=== PATIENT | female | born 1935 | race Caucasian/White ===

== ENCOUNTER 2016-09-03 15:30 | Inpatient (IN) | payer OTHER ==
[~2016-09-03] VITALS: Ht 162.6 cm; Wt 80.7 kg
[2016-09-03] MEDS ORDERED: SODIUM CHLORIDE 0.9% 1,000 ML IV ONE (16:05)
[2016-09-03 16:07] LABS: Basophils # (auto) 0 uL; CONDITION Y; Eosinophils # (auto) 0 uL; Hematocrit 40.8 % (36.0-46.0); Hemoglobin 13.4 g/dL (12.2-16.2); Lymphocytes # (auto) 1.1 uL; Lymphocytes % (auto) 7.5 % (10.0-50.0); Mean Corpuscular Hemoglobin 29.4 pg (28.0-32.0); Mean Corpuscular Hgb Conc. 32.8 g/dL (32.0-36.0); Mean Corpuscular Volume 89.5 fL (80.0-100.0); Mean Platelet Volume 8.6 fL (7.4-10.4); Monocytes % (auto) 6.8 % (0.0-12.0); Neutrophils # (auto) 12.6 uL; Neutrophils % (auto) 85.7 % (37.0-80.0); Platelet Count (auto) 326 10^3/uL (140-450); Red Cell Distribution Width 15.1 % (11.6-16.0); White Blood Cell 14.7 10^3/uL (4.4-10.8)
[2016-09-03 16:29] LABS: Albumin 3.5 g/dL (3.4-5.0); Bilirubin, Total 0.8 mg/dL (0.2-1.0); Calcium 9.3 mg/dL (8.5-10.1); Magnesium 2.1 mg/dL (1.6-2.6); Potassium 3.8 mmol/L (3.5-5.1); Total Protein 7.1 g/dL (6.4-8.2)
[2016-09-03] MEDS ORDERED: MECLIZINE HCL 25 MG TAB PO ONE (17:45)
[2016-09-03] MEDS ORDERED: LACTULOSE 20Gm/30ML SOLN PO PRN (18:00)
[2016-09-03] MEDS ORDERED: NITROGLYCERIN 0.4 MG SL TAB SL PRN (18:00)
[2016-09-03] MEDS ORDERED: HYDROcodone-ACET 5/325MG TAB PO PRN (18:00)
[2016-09-03] MEDS ORDERED: ACETAMINOPHEN 500 MG TAB PO PRN (18:00)
[2016-09-03] MEDS ORDERED: TEMAZEPAM 15 MG CAP PO PRN (18:00)
[2016-09-03] MEDS ORDERED: MORPHINE SULF INJ 2 MG/ML SYRINGE 1ML IV PRN ×2 (18:00)
[2016-09-03] MEDS ORDERED: LORazepam 0.5 MG TAB PO PRN (18:00)
[2016-09-03] MEDS ORDERED: PANTOPRAZOLE SODIUM 40 MG/10 ML VIAL IV ONE (18:00)
[2016-09-03] MEDS: PROMETHAZINE HCL 25 MG/ML 1ML IV PRN ×2 (18:09→18:47)
[2016-09-03] MEDS: SODIUM CHLORIDE 0.9% 1,000 ML IV SCH (18:20)
[2016-09-03] MEDS ORDERED: cefTRIAXone 1GM/50ML D5W 50 ML IV ONE (18:30)
[2016-09-03 19:09] LABS: Urine Bilirubin Negative (Negative); Urine Blood TRACE /uL (Negative); Urine Color Yellow (Yellow); Urine Glucose Normal (Normal); Urine Hyaline Cast FEW /lpf (0 - 2); Urine Mucus FEW (None Seen); Urine Nitrite Negative (Negative); Urine RBC 2 /hpf (0 - 4); Urine Squamous Epithelial Cell FEW /hpf (<5); Urine Urobilinogen Normal (Negative); Urine pH 5.5 (5.0-8.0)
[2016-09-03 19:12] LABS: Urine Ketone 1+ (Negative)
[2016-09-03 19:34] LABS: Temperature: 23.3 C (20.0-25.0)
[2016-09-03 19:51] LABS: Temperature: 23.3 C (20.0-25.0)
[2016-09-03] MEDS ORDERED: MORPHINE SULFATE 4 MG/ML SYRG IV PRN ×2 (21:31→21:32)
[2016-09-03] MEDS ORDERED: ATORVASTATIN 20 MG TAB PO SCH (22:00)
[2016-09-03] MEDS: METOPROLOL TARTRATE 25 MG TAB PO SCH (22:17)
[2016-09-03 22:50] VITALS: BP 139/53
[2016-09-04] MEDS: SODIUM CHLORIDE 0.9% 1,000 ML IV SCH ×3 (01:55→21:34)
[2016-09-04 05:00] VITALS: BP 132/68
[2016-09-04 05:57] LABS: Basophils # (auto) 0 uL; Basophils % (auto) 0.2 % (0.0-2.0); CONDITION Y; Eosinophils # (auto) 0.1 uL; Eosinophils % (auto) 0.4 % (0.0-7.0); Hematocrit 35.9 % (36.0-46.0); Hemoglobin 11.6 g/dL (12.2-16.2); Lymphocytes # (auto) 1.6 uL; Lymphocytes % (auto) 12.7 % (10.0-50.0); Mean Corpuscular Hemoglobin 29.2 pg (28.0-32.0); Mean Corpuscular Hgb Conc. 32.2 g/dL (32.0-36.0); Mean Corpuscular Volume 90.7 fL (80.0-100.0); Mean Platelet Volume 8.7 fL (7.4-10.4); Monocytes # (auto) 1.1 uL; Monocytes % (auto) 8.9 % (0.0-12.0); Neutrophils # (auto) 9.6 uL; Neutrophils % (auto) 77.8 % (37.0-80.0); Platelet Count (auto) 322 10^3/uL (140-450); Red Cell Distribution Width 15.2 % (11.6-16.0); White Blood Cell 12.4 10^3/uL (4.4-10.8)
[2016-09-04 06:19] LABS: Albumin 2.8 g/dL (3.4-5.0); BUN/Creatinine Ratio 51.8; Bilirubin, Total 0.5 mg/dL (0.2-1.0); Calcium 8.3 mg/dL (8.5-10.1); Potassium 3.7 mmol/L (3.5-5.1); Total Protein 5.7 g/dL (6.4-8.2)
[2016-09-04 07:58] LABS: Hematocrit 36.3 % (36.0-46.0); Hemoglobin 11.9 g/dL (12.2-16.2)
[2016-09-04] MEDS ORDERED: ASPirin 81 mg TAB PO SCH (10:00)
[2016-09-04] MEDS ORDERED: ENOXAPARIN SOD 40 MG/0.4 ML SYRINGE SC SCH (10:00)
[2016-09-04] MEDS: cefTRIAXone 1GM/50ML D5W 50 ML IV SCH (10:26)
[2016-09-04] MEDS: METOPROLOL TARTRATE 25 MG TAB PO SCH ×2 (10:27→21:35)
[2016-09-04] MEDS: PANTOPRAZOLE SODIUM 40 MG/10 ML VIAL IV SCH (10:27)
[2016-09-04] MEDS ORDERED: IOHEXOL 350 MG/ML 100ML IJ ONE (10:50)
[2016-09-04 11:49] LABS: Hemoglobin 11.8 g/dL (12.2-16.2)
[2016-09-04 11:50] VITALS: BP 125/55
[2016-09-04 16:10] LABS: Hematocrit 35.3 % (36.0-46.0); Hemoglobin 11.6 g/dL (12.2-16.2)
[2016-09-04 16:39] VITALS: BP 124/52
[2016-09-04 20:51] VITALS: BP 130/55
[2016-09-04] MEDS: ATORVASTATIN 20 MG TAB PO SCH (21:34)
[2016-09-04 22:51] LABS: Hematocrit 35.2 % (36.0-46.0); Hemoglobin 11.5 g/dL (12.2-16.2)
[2016-09-05] MEDS: SODIUM CHLORIDE 0.9% 1,000 ML IV SCH ×3 (01:55→18:23)
[2016-09-05 05:44] VITALS: BP 148/70
[2016-09-05 07:31] VITALS: BP 155/67
[2016-09-05] MEDS: BOOST 8 ounces PO SCH ×2 (10:14→18:24)
[2016-09-05] MEDS: cefTRIAXone 1GM/50ML D5W 50 ML IV SCH (10:14)
[2016-09-05] MEDS: PANTOPRAZOLE SODIUM 40 MG/10 ML VIAL IV SCH (10:15)
[2016-09-05] MEDS: METOPROLOL TARTRATE 25 MG TAB PO SCH ×2 (10:15→22:28)
[2016-09-05 11:51] VITALS: BP 145/65
[2016-09-05] MEDS ORDERED: MILK OF MAGNESIA 30ML SUSP PO PRN (12:15)
[2016-09-05] MEDS ORDERED: ENOXAPARIN SOD 40 MG/0.4 ML SYRINGE SC ONE (12:15)
[2016-09-05] MEDS ORDERED: ASPirin 81 mg TAB PO ONE (12:15)
[2016-09-05 16:00] VITALS: BP 141/67
[2016-09-05] MEDS: ATORVASTATIN 20 MG TAB PO SCH (22:29)
[2016-09-06] MEDS: SODIUM CHLORIDE 0.9% 1,000 ML IV SCH ×2 (01:55→17:26)
[2016-09-06 05:00] VITALS: BP 146/60
[2016-09-06] MEDS: BOOST 8 ounces PO SCH (08:00)
[2016-09-06] MEDS ORDERED: ASPirin 81 mg TAB PO SCH (10:00)
[2016-09-06 10:23] VITALS: BP 148/74
[2016-09-06] MEDS ORDERED: LORazepam 0.5 MG TAB NG PRN (11:15)
[2016-09-06] MEDS ORDERED: MILK OF MAGNESIA 30ML SUSP NG PRN (11:15)
[2016-09-06] MEDS ORDERED: ACETAMINOPHEN 650 mg PER 20 mL UD GT PRN (11:15)
[2016-09-06] MEDS ORDERED: LACTULOSE 20Gm/30ML SOLN NG PRN (11:15)
[2016-09-06] MEDS ORDERED: TEMAZEPAM 15 MG CAP NG PRN (11:15)
[2016-09-06] MEDS ORDERED: HYDROcodone-ACET 5/325MG TAB NG PRN (11:15)
[2016-09-06] MEDS: PANTOPRAZOLE SODIUM 40 MG/10 ML VIAL IV SCH (12:12)
[2016-09-06] MEDS: ASPirin 81 mg TAB NG SCH (12:13)
[2016-09-06] MEDS: cefTRIAXone 1GM/50ML D5W 50 ML IV SCH (12:13)
[2016-09-06] MEDS: METOPROLOL TARTRATE 25 MG TAB NG SCH ×2 (12:14→22:07)
[2016-09-06] MEDS: ENOXAPARIN SOD 40 MG/0.4 ML SYRINGE SC SCH (12:15)
[2016-09-06 13:00] VITALS: BP 140/76
[2016-09-06 13:01] LABS: B-Type Natriuretic Peptide 409.74 pg/mL (0-100)
[2016-09-06 13:08] LABS: Temperature: 22.5 C (20.0-25.0)
[2016-09-06 17:12] VITALS: BP 139/83
[2016-09-06] MEDS: BOOST 8 ounces NG SCH (17:27)
[2016-09-06 22:00] VITALS: BP 153/71
[2016-09-06] MEDS: ATORVASTATIN 20 MG TAB NG SCH (22:07)
[2016-09-07 05:00] VITALS: BP 159/91
[2016-09-07] MEDS: SODIUM CHLORIDE 0.9% 1,000 ML IV SCH (07:15)
[2016-09-07] MEDS: BOOST 8 ounces NG SCH ×2 (08:00→18:22)
[2016-09-07] MEDS: cefTRIAXone 1GM/50ML D5W 50 ML IV SCH (09:14)
[2016-09-07] MEDS: ASPirin 81 mg TAB NG SCH (10:42)
[2016-09-07] MEDS: PANTOPRAZOLE SODIUM 40 MG/10 ML VIAL IV SCH (10:43)
[2016-09-07] MEDS: ENOXAPARIN SOD 40 MG/0.4 ML SYRINGE SC SCH (10:43)
[2016-09-07] MEDS: METOPROLOL TARTRATE 25 MG TAB NG SCH (10:44)
[2016-09-07 10:50] LABS: Basophils # (auto) 0 uL; Basophils % (auto) 0.3 % (0.0-2.0); CONDITION Y; Eosinophils # (auto) 0.1 uL; Eosinophils % (auto) 1.2 % (0.0-7.0); Hematocrit 39.7 % (36.0-46.0); Hemoglobin 12.8 g/dL (12.2-16.2); Lymphocytes # (auto) 0.7 uL; Lymphocytes % (auto) 7.3 % (10.0-50.0); Mean Corpuscular Hemoglobin 29.4 pg (28.0-32.0); Mean Corpuscular Hgb Conc. 32.3 g/dL (32.0-36.0); Mean Platelet Volume 8.7 fL (7.4-10.4); Monocytes # (auto) 0.8 uL; Monocytes % (auto) 7.6 % (0.0-12.0); Neutrophils # (auto) 8.5 uL; Neutrophils % (auto) 83.6 % (37.0-80.0); Platelet Count (auto) 293 10^3/uL (140-450); Red Cell Distribution Width 15.1 % (11.6-16.0); White Blood Cell 10.2 10^3/uL (4.4-10.8)
[2016-09-07 11:36] LABS: Albumin 2.6 g/dL (3.4-5.0); BUN/Creatinine Ratio 12.9; Bilirubin, Total 0.4 mg/dL (0.2-1.0); Potassium 3.3 mmol/L (3.5-5.1); Total Protein 6.3 g/dL (6.4-8.2)
[2016-09-07 11:44] LABS: B-Type Natriuretic Peptide 252.12 pg/mL (0-100)
[2016-09-07 11:53] LABS: Temperature: 22.5 C (20.0-25.0)
[2016-09-07] MEDS ORDERED: ALBUTEROL SULF 2.5 MG/0.5ML(0.5%) NEB SOLN NEB PRN (13:15)
[2016-09-07] MEDS ORDERED: FUROSEMIDE 20 MG/2 ML VIAL IV ONE (13:15)
[2016-09-07] MEDS ORDERED: POTASSIUM CHL 20 Meq TABLET PO ONE (13:15)
[2016-09-07] MEDS: ENALAPRIL MALEATE 2.5 MG TAB PO SCH (13:46)
[2016-09-07] MEDS ORDERED: POTASSIUM CHL 10% (20 MEQ/15ML) ORAL SOLN PO ONE (15:45)
[2016-09-07 17:00] VITALS: BP 151/80
[2016-09-07] MEDS: ALBUTEROL SULF 2.5 MG/0.5ML(0.5%) NEB SOLN NEB SCH (20:15)
[2016-09-07] MEDS: IPRATROPIUM BROM 0.5 MG/2.5ML INH SOL NEB SCH (20:16)
[2016-09-07] MEDS: ATORVASTATIN 20 MG TAB NG SCH (21:37)
[2016-09-07] MEDS: CARVEDILOL 3.125 MG TAB PO SCH (21:37)
[2016-09-07 22:00] VITALS: BP 152/72
[2016-09-07 23:20] VITALS: BP 152/72
[2016-09-08] MEDS: ALBUTEROL SULF 2.5 MG/0.5ML(0.5%) NEB SOLN NEB SCH ×4 (00:55→18:25)
[2016-09-08] MEDS: IPRATROPIUM BROM 0.5 MG/2.5ML INH SOL NEB SCH ×4 (00:55→18:25)
[2016-09-08 05:00] VITALS: BP 138/68
[2016-09-08 07:01] LABS: B-Type Natriuretic Peptide 95.7 pg/mL (0-100); Temperature: 22.9 C (20.0-25.0)
[2016-09-08 08:00] VITALS: BP 153/65
[2016-09-08] MEDS: ASPirin 81 mg TAB NG SCH (09:18)
[2016-09-08] MEDS: cefTRIAXone 1GM/50ML D5W 50 ML IV SCH (09:18)
[2016-09-08] MEDS: PANTOPRAZOLE SODIUM 40 MG/10 ML VIAL IV SCH (09:18)
[2016-09-08] MEDS: ENOXAPARIN SOD 40 MG/0.4 ML SYRINGE SC SCH (09:18)
[2016-09-08] MEDS: CARVEDILOL 3.125 MG TAB PO SCH ×2 (09:19→22:27)
[2016-09-08] MEDS: ENALAPRIL MALEATE 2.5 MG TAB PO SCH (09:19)
[2016-09-08] MEDS: BOOST 8 ounces NG SCH ×2 (09:20→18:21)
[2016-09-08] MEDS ORDERED: BISACODYL 10 MG RECT SUPP PR PRN (11:15)
[2016-09-08] MEDS ORDERED: MILK OF MAGNESIA 30ML SUSP PO ONE (11:15)
[2016-09-08 12:30] VITALS: BP 147/85
[2016-09-08] MEDS ORDERED: LIDOCAINE 2%HCL (LOCAL ANESTH.) INJ 20ML MDV ONE (13:07)
[2016-09-08] MEDS ORDERED: IOHEXOL 350 MG/ML 100ML IJ ONE (13:07)
[2016-09-08] MEDS ORDERED: PHENYLEPHRINE HCL 10 MG/ML VL ONE (13:28)
[2016-09-08] MEDS ORDERED: ANGIOMAX 250 MG VIAL IV ONE (13:28)
[2016-09-08] MEDS ORDERED: GLYCOPYRROLATE 0.2 MG/ML 1ML VIAL ONE (13:28)
[2016-09-08] MEDS ORDERED: SODIUM CHL 0.9% 50 ML ONE (13:28)
[2016-09-08 17:30] VITALS: BP 148/73
[2016-09-08 22:00] VITALS: BP 134/72
[2016-09-08] MEDS: ATORVASTATIN 20 MG TAB NG SCH (22:26)
[2016-09-09] MEDS: IPRATROPIUM BROM 0.5 MG/2.5ML INH SOL NEB SCH ×4 (00:32→19:36)
[2016-09-09] MEDS: ALBUTEROL SULF 2.5 MG/0.5ML(0.5%) NEB SOLN NEB SCH ×4 (00:32→19:36)
[2016-09-09 06:16] VITALS: BP 153/76
[2016-09-09 08:39] VITALS: BP 153/77
[2016-09-09] MEDS ORDERED: TEMAZEPAM 15 MG CAP PO PRN (08:54)
[2016-09-09] MEDS ORDERED: LORazepam 0.5 MG TAB PO PRN (08:54)
[2016-09-09] MEDS ORDERED: MILK OF MAGNESIA 30ML SUSP PO PRN (08:54)
[2016-09-09] MEDS: cefTRIAXone 1GM/50ML D5W 50 ML IV SCH (10:25)
[2016-09-09] MEDS: ACETAMINOPHEN 650 mg PER 20 mL UD PO PRN (10:27)
[2016-09-09] MEDS: ENALAPRIL MALEATE 2.5 MG TAB PO SCH (10:28)
[2016-09-09] MEDS: MILK OF MAGNESIA 30ML SUSP PO SCH (10:28)
[2016-09-09] MEDS: ASPirin 81 mg TAB PO SCH (10:28)
[2016-09-09] MEDS: CARVEDILOL 3.125 MG TAB PO SCH ×2 (10:29→23:19)
[2016-09-09] MEDS: PANTOPRAZOLE SODIUM 40 MG/10 ML VIAL IV SCH (10:29)
[2016-09-09] MEDS: ENOXAPARIN SOD 40 MG/0.4 ML SYRINGE SC SCH (10:29)
[2016-09-09 12:20] VITALS: BP 144/68
[2016-09-09 15:58] VITALS: BP 143/70
[2016-09-09] MEDS: BOOST 8 ounces PO SCH (18:16)
[2016-09-09 21:30] VITALS: BP 110/49
[2016-09-09] MEDS: ATORVASTATIN 20 MG TAB PO SCH (23:20)
[2016-09-10] MEDS: ALBUTEROL SULF 2.5 MG/0.5ML(0.5%) NEB SOLN NEB SCH ×4 (00:39→19:20)
[2016-09-10] MEDS: IPRATROPIUM BROM 0.5 MG/2.5ML INH SOL NEB SCH ×4 (00:39→19:20)
[2016-09-10 05:00] VITALS: BP 127/57
[2016-09-10 05:24] LABS: Basophils # (auto) 0 uL; Basophils % (auto) 0.4 % (0.0-2.0); CONDITION Y; Eosinophils # (auto) 0.2 uL; Eosinophils % (auto) 1.8 % (0.0-7.0); Hematocrit 38.6 % (36.0-46.0); Hemoglobin 12.6 g/dL (12.2-16.2); Lymphocytes # (auto) 1.3 uL; Lymphocytes % (auto) 10.9 % (10.0-50.0); Mean Corpuscular Hemoglobin 29.5 pg (28.0-32.0); Mean Corpuscular Hgb Conc. 32.6 g/dL (32.0-36.0); Mean Corpuscular Volume 90.5 fL (80.0-100.0); Mean Platelet Volume 9.6 fL (7.4-10.4); Monocytes # (auto) 1.2 uL; Neutrophils # (auto) 9.1 uL; Neutrophils % (auto) 76.9 % (37.0-80.0); Platelet Count (auto) 269 10^3/uL (140-450); Red Cell Distribution Width 14.8 % (11.6-16.0); White Blood Cell 11.8 10^3/uL (4.4-10.8)
[2016-09-10 05:42] LABS: Albumin 2.6 g/dL (3.4-5.0); Potassium 3.7 mmol/L (3.5-5.1)
[2016-09-10 05:45] LABS: BUN/Creatinine Ratio 28.6
[2016-09-10 05:47] LABS: Bilirubin, Total 0.5 mg/dL (0.2-1.0); Total Protein 6.5 g/dL (6.4-8.2)
[2016-09-10] MEDS: HYDROcodone-ACET 5/325MG TAB PO PRN (06:33)
[2016-09-10] MEDS: LACTULOSE 20Gm/30ML SOLN PO PRN (06:42)
[2016-09-10] MEDS: BOOST 8 ounces PO SCH ×2 (08:00→17:55)
[2016-09-10 09:00] VITALS: BP 158/70
[2016-09-10] MEDS: cefTRIAXone 1GM/50ML D5W 50 ML IV SCH (09:26)
[2016-09-10] MEDS: ENALAPRIL MALEATE 2.5 MG TAB PO SCH (10:19)
[2016-09-10] MEDS: ASPirin 81 mg TAB PO SCH (10:19)
[2016-09-10] MEDS: PANTOPRAZOLE SODIUM 40 MG/10 ML VIAL IV SCH (10:20)
[2016-09-10] MEDS: CARVEDILOL 3.125 MG TAB PO SCH ×2 (10:20→21:52)
[2016-09-10] MEDS: ENOXAPARIN SOD 40 MG/0.4 ML SYRINGE SC SCH (10:20)
[2016-09-10] MEDS: MILK OF MAGNESIA 30ML SUSP PO SCH (10:26)
[2016-09-10 13:00] VITALS: BP 132/63
[2016-09-10 16:47] VITALS: BP 107/50
[2016-09-10 21:17] VITALS: BP 107/50
[2016-09-10] MEDS: ATORVASTATIN 20 MG TAB PO SCH (21:51)
[2016-09-11] MEDS: IPRATROPIUM BROM 0.5 MG/2.5ML INH SOL NEB SCH ×4 (00:39→19:58)
[2016-09-11] MEDS: ALBUTEROL SULF 2.5 MG/0.5ML(0.5%) NEB SOLN NEB SCH ×4 (00:39→19:58)
[2016-09-11 05:00] VITALS: BP 145/73
[2016-09-11 06:37] LABS: Basophils # (auto) 0 uL; Basophils % (auto) 0.3 % (0.0-2.0); CONDITION Y; Eosinophils # (auto) 0.2 uL; Eosinophils % (auto) 2.1 % (0.0-7.0); Hematocrit 36.6 % (36.0-46.0); Hemoglobin 11.9 g/dL (12.2-16.2); Lymphocytes # (auto) 1.1 uL; Lymphocytes % (auto) 9.1 % (10.0-50.0); Mean Corpuscular Hemoglobin 29.5 pg (28.0-32.0); Mean Corpuscular Hgb Conc. 32.5 g/dL (32.0-36.0); Mean Corpuscular Volume 90.7 fL (80.0-100.0); Mean Platelet Volume 10.1 fL (7.4-10.4); Monocytes # (auto) 1.1 uL; Monocytes % (auto) 9.5 % (0.0-12.0); Neutrophils # (auto) 9.3 uL; Platelet Count (auto) 270 10^3/uL (140-450); Red Cell Distribution Width 14.6 % (11.6-16.0); White Blood Cell 11.8 10^3/uL (4.4-10.8)
[2016-09-11 06:57] LABS: Albumin 2.5 g/dL (3.4-5.0); Calcium 9.5 mg/dL (8.5-10.1); Potassium 3.8 mmol/L (3.5-5.1)
[2016-09-11 07:08] LABS: BUN/Creatinine Ratio 30.4; Bilirubin, Total 0.4 mg/dL (0.2-1.0); Total Protein 6.1 g/dL (6.4-8.2)
[2016-09-11 09:00] VITALS: BP 153/65
[2016-09-11] MEDS: ENOXAPARIN SOD 40 MG/0.4 ML SYRINGE SC SCH (09:46)
[2016-09-11] MEDS: PANTOPRAZOLE SODIUM 40 MG/10 ML VIAL IV SCH (09:46)
[2016-09-11] MEDS: cefTRIAXone 1GM/50ML D5W 50 ML IV SCH (09:46)
[2016-09-11] MEDS: CARVEDILOL 3.125 MG TAB PO SCH ×2 (09:47→21:47)
[2016-09-11] MEDS: HYDROcodone-ACET 5/325MG TAB PO PRN (09:47)
[2016-09-11] MEDS: BOOST 8 ounces PO SCH ×2 (09:48→18:04)
[2016-09-11] MEDS: ENALAPRIL MALEATE 2.5 MG TAB PO SCH (09:48)
[2016-09-11] MEDS: MILK OF MAGNESIA 30ML SUSP PO SCH (09:49)
[2016-09-11] MEDS: ASPirin 81 mg TAB PO SCH (09:49)
[2016-09-11] MEDS: LACTULOSE 20Gm/30ML SOLN PO PRN (10:03)
[2016-09-11 15:00] VITALS: BP 134/65
[2016-09-11 17:23] VITALS: BP 145/61
[2016-09-11] MEDS ORDERED: MECL-87 PO (18:22)
[2016-09-11] MEDS ORDERED: ASPI81TA27 PO (18:22)
[2016-09-11] MEDS ORDERED: ATEN-60 PO (18:22)
[2016-09-11] MEDS: ATORVASTATIN 20 MG TAB PO SCH (21:47)
[2016-09-11 22:00] VITALS: BP 129/61
[2016-09-12] MEDS: ALBUTEROL SULF 2.5 MG/0.5ML(0.5%) NEB SOLN NEB SCH ×4 (00:22→19:38)
[2016-09-12] MEDS: IPRATROPIUM BROM 0.5 MG/2.5ML INH SOL NEB SCH ×4 (00:22→19:37)
[2016-09-12 05:00] VITALS: BP 138/67
[2016-09-12 09:00] VITALS: BP 147/71
[2016-09-12] MEDS: cefTRIAXone 1GM/50ML D5W 50 ML IV SCH (09:00)
[2016-09-12] MEDS: ENALAPRIL MALEATE 2.5 MG TAB PO SCH (09:04)
[2016-09-12] MEDS: PANTOPRAZOLE SODIUM 40 MG/10 ML VIAL IV SCH (09:04)
[2016-09-12] MEDS: CARVEDILOL 3.125 MG TAB PO SCH ×2 (09:05→21:26)
[2016-09-12] MEDS: ENOXAPARIN SOD 40 MG/0.4 ML SYRINGE SC SCH (09:05)
[2016-09-12] MEDS: ASPirin 81 mg TAB PO SCH (09:05)
[2016-09-12] MEDS: MILK OF MAGNESIA 30ML SUSP PO SCH (09:06)
[2016-09-12] MEDS: BOOST 8 ounces PO SCH ×2 (09:19→18:05)
[2016-09-12 17:00] VITALS: BP 132/77
[2016-09-12] MEDS: ATORVASTATIN 20 MG TAB PO SCH (21:26)
[2016-09-12 22:00] VITALS: BP 134/56
[2016-09-13] MEDS: IPRATROPIUM BROM 0.5 MG/2.5ML INH SOL NEB SCH ×4 (00:40→20:04)
[2016-09-13] MEDS: ALBUTEROL SULF 2.5 MG/0.5ML(0.5%) NEB SOLN NEB SCH ×4 (00:40→20:04)
[2016-09-13 05:00] VITALS: BP 150/76
[2016-09-13] MEDS: BOOST 8 ounces PO SCH ×2 (08:00→18:44)
[2016-09-13 09:51] VITALS: BP 147/80
[2016-09-13] MEDS: PANTOPRAZOLE SODIUM 40 MG/10 ML VIAL IV SCH (10:35)
[2016-09-13] MEDS: cefTRIAXone 1GM/50ML D5W 50 ML IV SCH (10:35)
[2016-09-13] MEDS: ENALAPRIL MALEATE 2.5 MG TAB PO SCH (10:36)
[2016-09-13] MEDS: ASPirin 81 mg TAB PO SCH (10:36)
[2016-09-13] MEDS: MILK OF MAGNESIA 30ML SUSP PO SCH (10:36)
[2016-09-13] MEDS: ENOXAPARIN SOD 40 MG/0.4 ML SYRINGE SC SCH (10:36)
[2016-09-13] MEDS: CARVEDILOL 3.125 MG TAB PO SCH ×2 (10:42→22:51)
[2016-09-13 13:00] VITALS: BP 151/76
[2016-09-13 17:00] VITALS: BP 130/71
[2016-09-13 22:08] VITALS: BP 121/51
[2016-09-13] MEDS: ATORVASTATIN 20 MG TAB PO SCH (22:51)
[2016-09-14 00:02] VITALS: BP 121/51
[2016-09-14] MEDS: IPRATROPIUM BROM 0.5 MG/2.5ML INH SOL NEB SCH ×4 (00:16→18:46)
[2016-09-14] MEDS: ALBUTEROL SULF 2.5 MG/0.5ML(0.5%) NEB SOLN NEB SCH ×4 (00:16→18:46)
[2016-09-14 04:57] VITALS: BP 138/65
[2016-09-14] MEDS: BOOST 8 ounces PO SCH ×2 (08:27→18:18)
[2016-09-14] MEDS: cefTRIAXone 1GM/50ML D5W 50 ML IV SCH (08:29)
[2016-09-14 09:00] VITALS: BP 144/68
[2016-09-14] MEDS: CARVEDILOL 3.125 MG TAB PO SCH ×2 (09:01→21:19)
[2016-09-14] MEDS: ASPirin 81 mg TAB PO SCH (09:01)
[2016-09-14] MEDS: ENALAPRIL MALEATE 2.5 MG TAB PO SCH (09:01)
[2016-09-14] MEDS: ENOXAPARIN SOD 40 MG/0.4 ML SYRINGE SC SCH (09:03)
[2016-09-14] MEDS: MILK OF MAGNESIA 30ML SUSP PO SCH (09:04)
[2016-09-14] MEDS: PANTOPRAZOLE SODIUM 40 MG/10 ML VIAL IV SCH (09:04)
[2016-09-14 13:00] VITALS: BP 120/49
[2016-09-14 17:00] VITALS: BP 123/58
[2016-09-14] MEDS: ATORVASTATIN 20 MG TAB PO SCH (21:18)
[2016-09-15] MEDS: IPRATROPIUM BROM 0.5 MG/2.5ML INH SOL NEB SCH ×4 (00:15→19:45)
[2016-09-15] MEDS: ALBUTEROL SULF 2.5 MG/0.5ML(0.5%) NEB SOLN NEB SCH ×4 (00:15→19:45)
[2016-09-15 05:00] VITALS: BP 151/65
[2016-09-15] MEDS: BOOST 8 ounces PO SCH ×2 (08:00→18:55)
[2016-09-15 09:00] VITALS: BP 142/57
[2016-09-15] MEDS: PANTOPRAZOLE SODIUM 40 MG/10 ML VIAL IV SCH (09:58)
[2016-09-15] MEDS: ENOXAPARIN SOD 40 MG/0.4 ML SYRINGE SC SCH (09:59)
[2016-09-15] MEDS: MILK OF MAGNESIA 30ML SUSP PO SCH (09:59)
[2016-09-15] MEDS: ASPirin 81 mg TAB PO SCH (10:00)
[2016-09-15] MEDS: ENALAPRIL MALEATE 2.5 MG TAB PO SCH (10:00)
[2016-09-15] MEDS: CARVEDILOL 3.125 MG TAB PO SCH ×2 (10:01→22:32)
[2016-09-15 11:47] VITALS: BP 121/59
[2016-09-15] MEDS: methylPREDNISolone SOD SUCC 40 MG/ML VL IV SCH ×2 (15:17→18:01)
[2016-09-15 17:15] VITALS: BP 127/68
[2016-09-15] MEDS: BUDESONIDE (INHALATION) 0.5 MG/2 ML NEB NEB SCH (19:41)
[2016-09-15] MEDS: ATORVASTATIN 20 MG TAB PO SCH (22:32)
[2016-09-16] MEDS: methylPREDNISolone SOD SUCC 40 MG/ML VL IV SCH ×2 (00:26→06:10)
[2016-09-16 05:00] VITALS: BP_SYST 142; BP_SYST 147; BP_DIAS 75; BP_DIAS 76
[2016-09-16] MEDS: IPRATROPIUM BROM 0.5 MG/2.5ML INH SOL NEB SCH ×4 (06:48→18:46)
[2016-09-16] MEDS: ALBUTEROL SULF 2.5 MG/0.5ML(0.5%) NEB SOLN NEB SCH ×4 (06:48→18:46)
[2016-09-16] MEDS: BOOST 8 ounces PO SCH ×2 (08:00→19:29)
[2016-09-16 08:43] VITALS: BP 146/69
[2016-09-16] MEDS: MILK OF MAGNESIA 30ML SUSP PO SCH (10:00)
[2016-09-16] MEDS: BUDESONIDE (INHALATION) 0.5 MG/2 ML NEB NEB SCH ×2 (10:48→22:00)
[2016-09-16] MEDS: ASPirin 81 mg TAB PO SCH (12:24)
[2016-09-16] MEDS: ENALAPRIL MALEATE 2.5 MG TAB PO SCH (12:25)
[2016-09-16] MEDS: CARVEDILOL 3.125 MG TAB PO SCH ×2 (12:25→21:35)
[2016-09-16] MEDS: PANTOPRAZOLE SODIUM 40 MG/10 ML VIAL IV SCH (12:25)
[2016-09-16] MEDS: ENOXAPARIN SOD 40 MG/0.4 ML SYRINGE SC SCH (12:26)
[2016-09-16 13:11] VITALS: BP 114/62
[2016-09-16 17:07] VITALS: BP 112/63
[2016-09-16] MEDS: ATORVASTATIN 20 MG TAB PO SCH (21:35)
[2016-09-16 23:31] VITALS: BP 118/51
[2016-09-17 03:52] VITALS: BP 102/52
[2016-09-17 05:00] VITALS: BP 126/58
[2016-09-17] MEDS: IPRATROPIUM BROM 0.5 MG/2.5ML INH SOL NEB SCH ×4 (06:15→19:31)
[2016-09-17] MEDS: BUDESONIDE (INHALATION) 0.5 MG/2 ML NEB NEB SCH ×2 (06:16→19:31)
[2016-09-17] MEDS: ALBUTEROL SULF 2.5 MG/0.5ML(0.5%) NEB SOLN NEB SCH ×4 (06:16→19:31)
[2016-09-17] MEDS: BOOST 8 ounces PO SCH ×2 (08:00→19:37)
[2016-09-17 09:00] VITALS: BP 133/70
[2016-09-17] MEDS: MILK OF MAGNESIA 30ML SUSP PO SCH (10:00)
[2016-09-17] MEDS: CARVEDILOL 3.125 MG TAB PO SCH ×2 (10:43→22:00)
[2016-09-17] MEDS: ASPirin 81 mg TAB PO SCH (10:43)
[2016-09-17] MEDS: ENOXAPARIN SOD 40 MG/0.4 ML SYRINGE SC SCH (10:43)
[2016-09-17] MEDS: PANTOPRAZOLE SODIUM 40 MG/10 ML VIAL IV SCH (10:44)
[2016-09-17] MEDS: ENALAPRIL MALEATE 2.5 MG TAB PO SCH (10:44)
[2016-09-17] MEDS: predniSONE 20 MG TAB PO SCH (10:44)
[2016-09-17 13:00] VITALS: BP 96/49
[2016-09-17 17:00] VITALS: BP 111/51
[2016-09-17 22:00] VITALS: BP 98/46
[2016-09-17] MEDS: ATORVASTATIN 20 MG TAB PO SCH (22:07)
[2016-09-18 05:00] VITALS: BP 135/58
[2016-09-18] MEDS: IPRATROPIUM BROM 0.5 MG/2.5ML INH SOL NEB SCH ×3 (05:46→20:05)
[2016-09-18] MEDS: ALBUTEROL SULF 2.5 MG/0.5ML(0.5%) NEB SOLN NEB SCH ×3 (05:46→20:05)
[2016-09-18] MEDS: BUDESONIDE (INHALATION) 0.5 MG/2 ML NEB NEB SCH ×2 (05:47→20:05)
[2016-09-18 08:46] VITALS: BP 140/82
[2016-09-18] MEDS: PANTOPRAZOLE SODIUM 40 MG/10 ML VIAL IV SCH (09:25)
[2016-09-18] MEDS: ENOXAPARIN SOD 40 MG/0.4 ML SYRINGE SC SCH (09:26)
[2016-09-18] MEDS: ASPirin 81 mg TAB PO SCH (09:26)
[2016-09-18] MEDS: predniSONE 20 MG TAB PO SCH (09:26)
[2016-09-18] MEDS: ENALAPRIL MALEATE 2.5 MG TAB PO SCH (09:27)
[2016-09-18] MEDS: CARVEDILOL 3.125 MG TAB PO SCH ×2 (09:27→22:00)
[2016-09-18] MEDS: BOOST 8 ounces PO SCH ×2 (09:35→18:38)
[2016-09-18] MEDS: MILK OF MAGNESIA 30ML SUSP PO SCH (10:00)
[2016-09-18 13:00] VITALS: BP 119/60
[2016-09-18 16:44] VITALS: BP 110/59
[2016-09-18 22:00] VITALS: BP 114/52
[2016-09-18] MEDS: ATORVASTATIN 20 MG TAB PO SCH (22:00)
[2016-09-19 05:00] VITALS: BP 131/69
[2016-09-19] MEDS: IPRATROPIUM BROM 0.5 MG/2.5ML INH SOL NEB SCH ×3 (06:54→19:15)
[2016-09-19] MEDS: BUDESONIDE (INHALATION) 0.5 MG/2 ML NEB NEB SCH ×2 (06:54→19:15)
[2016-09-19] MEDS: ALBUTEROL SULF 2.5 MG/0.5ML(0.5%) NEB SOLN NEB SCH ×3 (06:54→19:15)
[2016-09-19] MEDS: BOOST 8 ounces PO SCH ×2 (08:20→19:13)
[2016-09-19 09:00] VITALS: BP 135/75
[2016-09-19] MEDS: MILK OF MAGNESIA 30ML SUSP PO SCH (10:00)
[2016-09-19] MEDS: ENALAPRIL MALEATE 2.5 MG TAB PO SCH (10:08)
[2016-09-19] MEDS: predniSONE 20 MG TAB PO SCH (10:08)
[2016-09-19] MEDS: ENOXAPARIN SOD 40 MG/0.4 ML SYRINGE SC SCH (10:08)
[2016-09-19] MEDS: PANTOPRAZOLE SODIUM 40 MG/10 ML VIAL IV SCH (10:08)
[2016-09-19] MEDS: ASPirin 81 mg TAB PO SCH (10:08)
[2016-09-19] MEDS: CARVEDILOL 3.125 MG TAB PO SCH ×2 (10:09→22:00)
[2016-09-19 13:39] VITALS: BP 110/75
[2016-09-19 16:30] VITALS: BP 149/89
[2016-09-19 16:33] VITALS: BP 115/58
[2016-09-19 21:30] VITALS: BP 121/49
[2016-09-19] MEDS: ATORVASTATIN 20 MG TAB PO SCH (22:00)
[2016-09-20 04:39] VITALS: BP 123/67
[2016-09-20] MEDS: IPRATROPIUM BROM 0.5 MG/2.5ML INH SOL NEB SCH ×4 (07:15→19:22)
[2016-09-20] MEDS: ALBUTEROL SULF 2.5 MG/0.5ML(0.5%) NEB SOLN NEB SCH ×4 (07:15→19:22)
[2016-09-20] MEDS: BUDESONIDE (INHALATION) 0.5 MG/2 ML NEB NEB SCH ×2 (07:15→19:22)
[2016-09-20] MEDS: BOOST 8 ounces PO SCH ×2 (08:00→18:00)
[2016-09-20 09:00] VITALS: BP 127/87
[2016-09-20] MEDS: predniSONE 20 MG TAB PO SCH (10:13)
[2016-09-20] MEDS: PANTOPRAZOLE 40 MG TAB PO SCH (10:15)
[2016-09-20] MEDS: CARVEDILOL 3.125 MG TAB PO SCH ×2 (10:15→22:12)
[2016-09-20] MEDS: ENALAPRIL MALEATE 2.5 MG TAB PO SCH (10:16)
[2016-09-20] MEDS: ASPirin 81 mg TAB PO SCH (10:16)
[2016-09-20] MEDS: MILK OF MAGNESIA 30ML SUSP PO SCH (10:16)
[2016-09-20] MEDS: ENOXAPARIN SOD 40 MG/0.4 ML SYRINGE SC SCH (10:20)
[2016-09-20] MEDS: HYDROcodone-ACET 5/325MG TAB PO PRN (10:30)
[2016-09-20 12:42] VITALS: BP 98/45
[2016-09-20] MEDS ORDERED: TEMAZEPAM 15 MG CAP PO PRN (14:00)
[2016-09-20] MEDS ORDERED: PROMETHAZINE HCL 25 MG/ML 1ML IV PRN (14:00)
[2016-09-20] MEDS ORDERED: HYDROcodone-ACET 5/325MG TAB PO PRN (14:00)
[2016-09-20] MEDS ORDERED: LORazepam 0.5 MG TAB PO PRN (14:00)
[2016-09-20] MEDS ORDERED: BISACODYL 10 MG RECT SUPP PR PRN (14:00)
[2016-09-20] MEDS ORDERED: ALBUTEROL SULF 2.5 MG/0.5ML(0.5%) NEB SOLN NEB PRN (14:00)
[2016-09-20 17:04] VITALS: BP 102/52
[2016-09-20 22:00] VITALS: BP 121/54
[2016-09-20] MEDS: ATORVASTATIN 20 MG TAB PO SCH (22:12)
[2016-09-21 03:56] VITALS: BP 113/48
[2016-09-21 05:08] VITALS: BP 149/66
[2016-09-21] MEDS: ALBUTEROL SULF 2.5 MG/0.5ML(0.5%) NEB SOLN NEB SCH ×3 (07:53→18:24)
[2016-09-21] MEDS: IPRATROPIUM BROM 0.5 MG/2.5ML INH SOL NEB SCH ×3 (07:53→18:24)
[2016-09-21] MEDS: BUDESONIDE (INHALATION) 0.5 MG/2 ML NEB NEB SCH ×2 (07:54→18:24)
[2016-09-21 09:00] VITALS: BP 146/76
[2016-09-21] MEDS: MILK OF MAGNESIA 30ML SUSP PO SCH (10:00)
[2016-09-21] MEDS: predniSONE 20 MG TAB PO SCH (12:38)
[2016-09-21] MEDS: BOOST 8 ounces PO SCH ×2 (12:38→17:30)
[2016-09-21] MEDS: ASPirin 81 mg TAB PO SCH (12:38)
[2016-09-21] MEDS: PANTOPRAZOLE 40 MG TAB PO SCH (12:39)
[2016-09-21] MEDS: CARVEDILOL 3.125 MG TAB PO SCH ×2 (12:39→22:00)
[2016-09-21] MEDS: ENOXAPARIN SOD 40 MG/0.4 ML SYRINGE SC SCH (12:39)
[2016-09-21] MEDS: ACETAMINOPHEN 650 mg PER 20 mL UD PO PRN (12:40)
[2016-09-21] MEDS: ENALAPRIL MALEATE 2.5 MG TAB PO SCH (12:40)
[2016-09-21 13:00] VITALS: BP 109/59
[2016-09-21] MEDS ORDERED: ACETAMINOPHEN 650 mg PER 20 mL UD PO PRN (14:00)
[2016-09-21] MEDS ORDERED: LACTULOSE 20Gm/30ML SOLN PO PRN (14:00)
[2016-09-21 17:42] VITALS: BP 105/52
[2016-09-21 21:48] VITALS: BP 92/37
[2016-09-21] MEDS: ATORVASTATIN 20 MG TAB PO SCH (22:00)
[2016-09-22 04:59] VITALS: BP 130/59
[2016-09-22] MEDS: IPRATROPIUM BROM 0.5 MG/2.5ML INH SOL NEB SCH ×3 (06:41→19:45)
[2016-09-22] MEDS: ALBUTEROL SULF 2.5 MG/0.5ML(0.5%) NEB SOLN NEB SCH ×3 (06:41→19:45)
[2016-09-22] MEDS: BUDESONIDE (INHALATION) 0.5 MG/2 ML NEB NEB SCH ×2 (06:41→19:45)
[2016-09-22] MEDS: BOOST 8 ounces PO SCH ×2 (08:00→18:00)
[2016-09-22 09:19] VITALS: BP 127/59
[2016-09-22] MEDS ORDERED: MILK OF MAGNESIA 30ML SUSP PO SCH (10:00)
[2016-09-22] MEDS: ENALAPRIL MALEATE 2.5 MG TAB PO SCH (10:00)
[2016-09-22] MEDS: CARVEDILOL 3.125 MG TAB PO SCH ×2 (10:00→22:30)
[2016-09-22] MEDS ORDERED: ASPirin 81 mg TAB PO SCH (10:00)
[2016-09-22] MEDS: PANTOPRAZOLE 40 MG TAB PO SCH (11:35)
[2016-09-22] MEDS: ENOXAPARIN SOD 40 MG/0.4 ML SYRINGE SC SCH (11:35)
[2016-09-22] MEDS: predniSONE 20 MG TAB PO SCH (11:36)
[2016-09-22 12:53] VITALS: BP 137/63
[2016-09-22 16:59] VITALS: BP 124/52
[2016-09-22] MEDS: ATORVASTATIN 20 MG TAB PO SCH (22:30)
== END 2016-09-22 23:16 | DRG 871 ==
LOC: EDBD 15:30 → ER 15:41 → TELE 15:42 → TELE-EAST 21:25 → EAST 09-20 01:15
PROVIDERS: ADMIT Internal Medicine; ATTEND Internal Medicine Pulmonary Disease
PROC: B31C1ZZ Fluoroscopy of Bilateral External Carotid Arteries using Low Osmolar Contrast (ICD-10-PCS; principal; 2016-09-10)
DX: A41.9 Sepsis, unspecified organism (principal); I63.9 Cerebral infarction, unspecified; E87.0 Hyperosmolality and hypernatremia; N39.0 Urinary tract infection, site not specified; E44.0 Moderate protein-calorie malnutrition; J44.1 Chronic obstructive pulmonary disease with (acute) exacerbation; F17.200 Nicotine dependence, unspecified, uncomplicated; I10 Essential (primary) hypertension; I48.91 Unspecified atrial fibrillation; F32.9 Major depressive disorder, single episode, unspecified; G56.01 Carpal tunnel syndrome, right upper limb; Z90.710 Acquired absence of both cervix and uterus; Z90.49 Acquired absence of other specified parts of digestive tract; Z60.2 Problems related to living alone; D72.829 Elevated white blood cell count, unspecified; R26.9 Unspecified abnormalities of gait and mobility; K59.00 Constipation, unspecified; R13.19 Other dysphagia; I66.9 Occlusion and stenosis of unspecified cerebral artery; Z71.89 Other specified counseling; H81.09 Meniere's disease, unspecified ear; D18.1 Lymphangioma, any site; Z68.30 Body mass index [BMI] 30.0-30.9, adult; E86.0 Dehydration; R49.0 Dysphonia
CPT/HCPCS: 36415; 51702; 70450; 70551; 71010; 71020; 71275; 80053; 80061; 80307; 81001; 82150; 82270; 82550; 82607; 82746; 83690; 83735; 83880; 84443; 84484; 85014; 85018; 85025; 85045; 85379; 85652; 86141; 87086; 92526; 92610; 93005; 93306; 93886; 94640; 94761; 96361; 96365; 96375; 97110; 97116; 97530; 99152; C9113; J0696